=== PATIENT | male | born 1975 | race Caucasian/White ===

== ENCOUNTER 2019-12-01 16:05 | Emergency (ER) | payer OTHER ==
[~2019-12-01] VITALS: Ht 177.8 cm; Wt 102.1 kg
[2019-12-01 17:04] LABS: ABSOLUTE LYMPHOCYTES 1.3 thou/uL (0.8-5.3); ABSOLUTE MONOCYTES 0.5 thou/uL (0.0-1.2); ABSOLUTE NEUTROPHILS 10.5 thou/uL (1.6-8.1); BASOPHILS 0.2 %; HEMATOCRIT 46.9 % (42.0-52.0); HEMOGLOBIN 16.2 gm/dL (14.0-18.0); LYMPHOCYTES 10.8 %; MCHC 34.6 g/dL (28.0-37.0); MCV 86.7 fL (80.0-100.0); MONOCYTES 4.1 %; MPV 7.8 fl. (7.2-11.1); NUCLEATED RBCS 0 /100WBC; PLATELET COUNT* 238 thou/uL (150-400); POLYS 84.9 %; RBC 5.41 mil/uL (4.50-6.00); RDW-CV 12.9 % (10.5-14.5); WBC 12.4 thou/uL (4.0-11.0)
[2019-12-01 17:20] LABS: CALCIUM 9.1 mg/dL (8.5-10.1); CREATININE 1.2 mg/dL (0.6-1.3); POTASSIUM 3.7 mmol/L (3.5-5.1)
[2019-12-01 17:24] LABS: ALBUMIN 4.6 g/dL (3.4-5.0); TOTAL BILIRUBIN 0.5 mg/dL (<0.1-1.0); TOTAL PROTEIN 8.3 g/dL (6.4-8.2)
[2019-12-01 17:48] LABS: URINE BILIRUBIN NEGATIVE (Negative); URINE BLOOD NEGATIVE (Negative); URINE CLARITY CLEAR; URINE COLOR YELLOW; URINE GLUCOSE-RANDOM NEGATIVE (Negative); URINE KETONES NEGATIVE (Negative); URINE LEUKOCYTES-REFLEX NEGATIVE (Negative); URINE NITRITE-REFLEX NEGATIVE (Negative); URINE PROTEIN NEGATIVE (Negative); URINE SPECIFIC GRAVITY >= 1.030 (1.005-1.030); URINE UROBILINOGEN 0.2 E.U./dl (0.2-1.0)
[2019-12-01] MEDS ORDERED: IBUPROFEN 800800 M1 PO (19:12)
[2019-12-01] MEDS ORDERED: NORCO 5-325 TA1 EAC2 PO (19:12)
[2019-12-01 19:36] VITALS: BP 127/77
--- NOTE | 2019-12-02 11:51 | EKG ---
[place] [address] ELECTROCARDIOGRAM REPORT Name: ROSELIA ESCOBAR Room: [facility]#: [id number] Admission: 12/01/19 Attend Phys: Discharge: 12/01/19 Date of : 73 Date of Service: 12/01/19 1641 Report #: [id number] THIS REPORT FOR: //name// [facility] ED Test Date: 2019-12-01 Test Time: 16:41:44 Pat Name: ROSELIA ESCOBAR Department: Room: Gender: Finishing Machine Operator: : 1975 Requested By: Mariia Lane Order Number: [id number] MD: Eric Weber Measurements Intervals [place] Rate: 72 P: 46 MA: 138 QRS: -70 QRSD: 109 T: 37 QT: 381 QTc: 417 Interpretive Statements Sinus rhythm Left anterior fascicular block Abnormal R-wave progression, late transition No previous ECG available for comparison Electronically Signed On 12-02-2019 11:51:18 CDT by Eric Weber [email or web address] <ELECTRONICALLY SIGNED> By: Eric Weber MD, [facility] 12/02/19 1151 40 40 Eric Weber MD, FAC /EPI
== END 2019-12-01 19:22 | disposition home or self-care (01) ==
LOC: M.ERS 16:05
PROVIDERS: Nurse Practitioner Family
DX: K80.20 Calculus of gallbladder without cholecystitis without obstruction (principal); K76.0 Fatty (change of) liver, not elsewhere classified